=== PATIENT | female | born 2000 | race Caucasian/White ===

== ENCOUNTER 2020-04-07 20:22 | Inpatient (IN) | payer OTHER ==
[~2020-04-07] VITALS: Ht 157.5 cm; Wt 56.2 kg
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
--- NOTE | 2020-04-07 23:08 | NUR ---
PACIENTE ALERTA Y ORIENTADA X3. EN CAMA #1 DE UNIDAD DE CRITICO CON BARANDAS ELEVADAS Y INTERCOM ACCESIBLE. PACIENTE CONECTADA A MONITOR CARDIACO Y OXIMETRIA DE PULSO. RECIBIENDO OXIGENO POR CANULA NASAL A 2 LITROS Y SATURANDO OXIGENO MANUAL A 99%. H/L PATENTE Y CANDICE DE EDEMA Y ERITEMA. MISS. CHECO ROMERO D EL TURNO ANTERIOR REFIRIO QUE LA PACIENTE MIENTRAS ESTUBO BAJO SALAZAR CUIDADO NO PRESENTO NINGUN EPISODIO DE CONVULSION. PENDIENTE RE-EVALUACION MEDICA CUANDO SALGA RESULTADO DEL ACIDO LACTICO Y LA LECTURA DEL CT DE REGI REALIZADO. SE MANTIENE BAJO OBSERVACION POR CAMBIOS SIGNIFICATIVOS.
--- NOTE | 2020-04-08 01:00 | NUR ---
SE ADMINISTRO MEDICAMENTO [place] POR . PENDIENTE VISITA DE DR. MOREJON.
--- NOTE | 2020-04-08 05:00 | NUR ---
0458 PACIENTE REFIRIO NAUSEAS Y GANAS DE VOMITAR ARELY NO LE SALE. REFIERE POR LA FUERZA QUE REALIZA PARA INTENTAR VOMITAR LE MOLESTA EL PECHO. PACIENTE CON TOS FLEX. SE NOTIFICO A DR. WILSON QUIEN EVALUO A PACIENTE. MEDICO REFIERE ADMINISTRAR TORADOL 30MG IV Y ZOFRAN 8MG IV. 0500 SE ADMINISTRO MEDICAMENTOS ORDENADOS POR MD A LAS 5:00AM. SE REALIZO PRUEBA DE COVID 19 IN [place] POR MD. SE MANTIENE BAJO OBSERVACION POR CAMBIOS SIGNIFICATIVOS.
--- NOTE | 2020-04-08 06:31 | NUR ---
PACIENTE TRANQUILA, SE LE FUERON LAS NAUSEAS Y EL DOLOR.
--- NOTE | 2020-04-08 07:20 | NUR ---
SE RECIBE PACIENTE FEMENINA DE 19 ANOS DE EDAD BAJO LOS CUIDADOS DE HEATHER TIESHA. AL MOMENTO DE CARLITOS, PACIENTE SE ENCUENTRA DORMIDA EN SELIN CON BARANDAS ELEVADAS. SE OBSERVA PACIENTE CONECTADA EN MONITOR CARDIACO Y SATUROMETRIA FLEX. AREA DE VENOPUNCION PATENTE EN MANO DERECHA BAJANDO UN 0.9NS A 150ML POR HORA CANDICE DE EDEMAS, ENROJECIMIENTO Y DOLOR AL TACTO. PACIENTE NO REFIERE TENER NINGUN TIPO DE QUEJA AL MOMENTO. SE MANTIENE PACIENTE EN OBSERVACION PARA CAMBIOS SIGNIFICATIVOS.
== END 2020-04-11 18:43 | disposition home or self-care (01) | DRG 101 ==
LOC: ER 20:22 → MEDJ 04-08 08:13 → SEC-K 04-08 08:13 → MEDJ 04-08 12:03
PROVIDERS: ADMIT Internal Medicine; ATTEND Internal Medicine
PROC: BW28ZZZ Computerized Tomography (CT Scan) of Head (ICD-10-PCS; 2020-04-07)
PROC: BW38ZZZ Magnetic Resonance Imaging (MRI) of Head (ICD-10-PCS; principal; 2020-04-08)
DX: G40.89 Other seizures (principal); Z20.828 Contact with and (suspected) exposure to other viral communicable diseases
CPT/HCPCS: 70544